=== PATIENT | female | born 1975 | race Caucasian/White ===

== ENCOUNTER 2019-11-05 08:59 | Outpatient (CLI) | payer MEDICARE, MEDICAID, SELFPAY ==
--- NOTE | 2019-11-05 09:09 | CT_ITS ---
WS: [id number] CT CHEST WITHOUT INTRAVENOUS CONTRAST HISTORY: FOREIGN BODY OF CHEST WALL, RIGHT TECHNIQUE: Contiguous 5 mm axial imaging performed on the thorax. Coronal and sagittal reformats are submitted. All CT scans at [facility] use at least one of these dose optimization techniq ues: automated exposure control; mA and/or kV adjustment per patient size (includes targeted exams wh ere dose is matched to clinical indication); or iterative reconstruction. CONTRAST: None DLP: 765.09 mGy-cm. COMPARISON: 10/20/2019 Lungs and central airway: Mild pulmonary hyperinflation and interstitial thickening from emphysema. N o suspicious mass or nodule. Benign granuloma RIGHT lower lobe. Pleura: Normal. No pleural effusion. Heart and pericardium: Normal size heart. No pericardial effusion. Mediastinum and [place]: Benign RIGHT paratracheal and RIGHT hilar lymph nodes are calcified. No adenopa thy identified on this unenhanced study. Vessels: Normal size aortic and pulmonary artery. No coronary artery calcifications. Chest wall and lower neck: Foreign body density measures 6 mm in the soft tissues just to the RIGHT o f midline over the mid sternum. This corresponds to the palpable abnormality and the abnormality desc ribed on a recent ultrasound. May be a foreign body which is calcified or even the residual of a prio r catheter as it does appear to be a central lumen. There is no significant amount of adjacent inflam mation or associated soft tissue mass. Upper abdomen: Negative. Osseous structures: No osteoblastic or osteolytic bone disease. CT/CT chest wo con [id number] IMPRESSION: 1. Foreign body versus calcification in the soft tissues of the anterior chest wall just to the RIGHT of midline. Corresponds to the findings on the recent u ltrasound from 10/20/2019. May be a foreign body reaction or granuloma. Residua l fracture of the venous catheter cannot be excluded. There is no significant a mount of corresponding acute inflammatory reaction or soft tissue mass. May be a granulomatous reaction from the foreign body that was previously present. 2. Mild emphysema.
== END 2019-11-05 09:00 | disposition home or self-care (01) ==
PROVIDERS: Family Provider Nurse Practitioner; PCP Nurse Practitioner; Visit Provider Nurse Practitioner Family
DX: S20.351A Superficial foreign body of right front wall of thorax, initial encounter (principal); X58.XXXA Exposure to other specified factors, initial encounter; J43.9 Emphysema, unspecified
CPT/HCPCS: 71250

== ENCOUNTER → 2019-12-08 10:10 | Outpatient (BNVA) | payer MEDICARE, MEDICAID, SELFPAY | PROVIDERS: Family Provider Nurse Practitioner; PCP Nurse Practitioner; Visit Provider Surgery | DX: R22.9 Localized swelling, mass and lump, unspecified (principal) | CPT/HCPCS: 88305 ==

== ENCOUNTER → 2020-03-17 15:11 | Outpatient (BNVA) | payer MEDICARE, MEDICAID, SELFPAY | PROVIDERS: Family Provider Nurse Practitioner; PCP Nurse Practitioner; Visit Provider Nurse Practitioner | DX: M79.671 Pain in right foot (principal); I10 Essential (primary) hypertension; J30.1 Allergic rhinitis due to pollen; I73.00 Raynaud's syndrome without gangrene; K21.9 Gastro-esophageal reflux disease without esophagitis; F32.9 Major depressive disorder, single episode, unspecified; G43.509 Persistent migraine aura without cerebral infarction, not intractable, without status migrainosus | CPT/HCPCS: 73630; 80053; 80061 ==

== ENCOUNTER → 2020-08-01 15:52 | Outpatient (BNVA) | payer MEDICARE, MEDICAID, SELFPAY | PROVIDERS: Family Provider Nurse Practitioner; PCP Nurse Practitioner; Visit Provider Nurse Practitioner | DX: M25.572 Pain in left ankle and joints of left foot (principal) | CPT/HCPCS: 73610; 73630 ==

== ENCOUNTER → 2020-09-20 14:53 | Outpatient (BNVA) | payer MEDICARE, MEDICAID, SELFPAY | PROVIDERS: Family Provider Nurse Practitioner; PCP Nurse Practitioner; Referring Provider Nurse Practitioner; Visit Provider Podiatrist Foot & Ankle Surgery | DX: S89.92XA Unspecified injury of left lower leg, initial encounter (principal); X58.XXXA Exposure to other specified factors, initial encounter | CPT/HCPCS: 73590 ==

== ENCOUNTER → 2020-10-03 14:26 | Outpatient (BNVA) | payer MEDICARE, MEDICAID, SELFPAY | PROVIDERS: Family Provider Nurse Practitioner; PCP Nurse Practitioner; Visit Provider Nurse Practitioner Family | DX: S89.91XA Unspecified injury of right lower leg, initial encounter (principal); M25.561 Pain in right knee; M25.361 Other instability, right knee; X58.XXXA Exposure to other specified factors, initial encounter | CPT/HCPCS: 73562 ==

== ENCOUNTER 2020-10-13 08:14 | Outpatient (CLI) | payer MEDICARE, MEDICAID, SELFPAY ==
--- NOTE | 2020-10-13 08:45 | MR_ITS ---
WS: [id number] MRI RIGHT KNEE HISTORY: S89.91XA - Unspecified injury of right lower leg, initial encounter COMPARISON: Knee radiographs 10/03/2020. Prior MRI 04/03/2012. Anterior cruciate ligament: Increased signal in the mid to distal ACL extending between the anterior and posterior band. Partial tear is likely. Posterior cruciate ligament: Intact. Medial collateral ligament: Intact. Posterior lateral corner structures: Intact. Medial menisci: Intact. Normal signal, size and shape. Lateral meniscus: Intact. Normal signal, size and shape. Extensor mechanism: Distal quadriceps tendon and patellar tendons are intact. Fluid and soft tissue: Very small joint effusion. There is a small amount of edema in the infrapatell ar fat pad adjacent to the distal patellar tendon. No Romano's cyst. Previously described ganglion is no longer evident. Osseous and articular structures: Patellofemoral compartment: Normal. Medial compartment: Normal. Lateral compartment: Joint space is well preserved. No cartilage injury. There is marrow edema in the anterior tibial plateau with extension into the metaphysis. Low signal on the T1 sequences and incre ased on the T2. Tiny microfractures are evident. No depression of the tibial plateau. MR/MR knee RT wo con* [id number] IMPRESSION: 1. Moderate amount of marrow edema involving the lateral tibial plateau with e xtension into the tibial metaphysis and microfractures. 2. Partial tear distal ACL. 3. No meniscal tear.
== END 2020-10-13 08:15 | disposition home or self-care (01) ==
PROVIDERS: PCP Nurse Practitioner; Visit Provider Nurse Practitioner Family
DX: S83.511A Sprain of anterior cruciate ligament of right knee, initial encounter; X58.XXXA Exposure to other specified factors, initial encounter; R60.0 Localized edema
CPT/HCPCS: 73721

== ENCOUNTER 2020-10-26 06:00 | Outpatient (RCR) | payer MEDICARE, MEDICAID, SELFPAY | END 2020-11-03 23:59 | disposition home or self-care (01) | LOC: TPT 06:00 | PROVIDERS: PCP Nurse Practitioner; Referring Provider Orthopaedic Surgery; Visit Provider Orthopaedic Surgery | DX: S80.01XD Contusion of right knee, subsequent encounter (principal); X58.XXXD Exposure to other specified factors, subsequent encounter | CPT/HCPCS: 97110; 97161 ==

== ENCOUNTER 2020-11-04 06:00 | Outpatient (RCR) | payer MEDICARE, MEDICAID, SELFPAY | END 2020-12-04 23:59 | disposition home or self-care (01) | LOC: TPT 06:00 | PROVIDERS: PCP Nurse Practitioner; Referring Provider Orthopaedic Surgery; Visit Provider Orthopaedic Surgery | DX: S80.01XD Contusion of right knee, subsequent encounter (principal); X58.XXXD Exposure to other specified factors, subsequent encounter | CPT/HCPCS: 97110 ==

== ENCOUNTER 2020-11-15 16:13 | Outpatient (CLI) | payer MEDICARE, MEDICAID, SELFPAY ==
--- NOTE | 2020-11-15 16:20 | XR_ITS ---
WS: [id number] RIGHT RIBS, MULTIPLE VIEWS WITH PA CHEST HISTORY: R07.81 - Pleurodynia COMPARISON: None available. Lungs and mediastinum: Minimal linear scarring at the lingula. No pneumothorax. No pulmonary contusio n. Ribs: No rib fractures or bone destruction identified. XR/XR ribs RT mn 3V w CXR1V [id number] IMPRESSION: No RIGHT rib fractures identified.
== END 2020-11-15 16:14 | disposition home or self-care (01) ==
LOC: RADWPI 16:17
PROVIDERS: PCP Nurse Practitioner; Visit Provider Nurse Practitioner Family
DX: R07.81 Pleurodynia (principal)
CPT/HCPCS: 71101

== ENCOUNTER 2020-12-05 06:00 | Outpatient (RCR) | payer MEDICARE, MEDICAID, SELFPAY | END 2020-12-07 23:00 | disposition home or self-care (01) | LOC: TPT 06:00 | PROVIDERS: PCP Nurse Practitioner; Referring Provider Orthopaedic Surgery; Visit Provider Orthopaedic Surgery | DX: S80.01XD Contusion of right knee, subsequent encounter (principal); X58.XXXD Exposure to other specified factors, subsequent encounter; M25.561 Pain in right knee | CPT/HCPCS: 97110 ==

== ENCOUNTER → 2020-12-07 10:33 | Outpatient (BNVA) | payer MEDICARE, MEDICAID, SELFPAY | PROVIDERS: PCP Nurse Practitioner; Visit Provider Nurse Practitioner Family | DX: I10 Essential (primary) hypertension (principal); E55.9 Vitamin D deficiency, unspecified | CPT/HCPCS: 80053; 80061; 82306; 84443; 85025 ==

== ENCOUNTER → 2021-03-28 11:56 | Outpatient (BNVA) | payer MEDICARE, MEDICAID, SELFPAY | PROVIDERS: PCP Nurse Practitioner; Visit Provider Nurse Practitioner | DX: I10 Essential (primary) hypertension (principal); J30.1 Allergic rhinitis due to pollen; I73.00 Raynaud's syndrome without gangrene; K21.9 Gastro-esophageal reflux disease without esophagitis; G43.509 Persistent migraine aura without cerebral infarction, not intractable, without status migrainosus; F32.9 Major depressive disorder, single episode, unspecified; E78.2 Mixed hyperlipidemia | CPT/HCPCS: 80053; 80061; 84443; 85025 ==

== ENCOUNTER 2021-03-29 14:55 | Outpatient (CLI) | payer MEDICARE, MEDICAID, SELFPAY | END 2021-03-29 14:56 | disposition home or self-care (01) | LOC: SPT 14:57 | PROVIDERS: PCP Nurse Practitioner; Visit Provider Podiatrist Foot & Ankle Surgery | DX: Z46.89 Encounter for fitting and adjustment of other specified devices (principal); M76.72 Peroneal tendinitis, left leg | CPT/HCPCS: L1902 ==

== ENCOUNTER 2021-06-01 13:04 | Outpatient (CLI) | payer MEDICARE, MEDICAID, SELFPAY ==
--- NOTE | 2021-06-01 13:30 | MM_ITS ---
WS: [id number] BILATERAL DIGITAL SCREENING MAMMOGRAPHY WITH CAD CLINICAL INFORMATION: Z12.39 - Encounter for other screening for malignant neop... HISTORY: Screening mammogram. No current complaints. COMPARISON: TECHNIQUE: Bilateral CC and MLO views. FINDINGS: Scattered fibroglandular densities bilaterally. A few tiny punctate calcification. No suspicious foca l mass, asymmetry, calcifications, or architectural distortion. No evidence of malignancy. MM/[place] [id number] IMPRESSION: BI-RADS: 2-Benign FOLLOW UP: 1 Year Follow-up Recommend return to annual screening mammography.
== END 2021-06-01 13:05 | disposition home or self-care (01) ==
PROVIDERS: PCP Nurse Practitioner; Visit Provider Nurse Practitioner
DX: Z12.31 Encounter for screening mammogram for malignant neoplasm of breast (principal)
CPT/HCPCS: 77067

== ENCOUNTER → 2021-12-05 11:59 | Outpatient (BNVA) | payer MEDICARE, MEDICAID, SELFPAY | PROVIDERS: PCP Nurse Practitioner; Visit Provider Nurse Practitioner Family | DX: R30.0 Dysuria (principal) | CPT/HCPCS: 81000 ==

== ENCOUNTER → 2022-02-22 11:01 | Outpatient (BNVA) | payer MEDICARE, MEDICAID, SELFPAY | PROVIDERS: PCP Nurse Practitioner; Visit Provider Nurse Practitioner | DX: E78.2 Mixed hyperlipidemia (principal); I10 Essential (primary) hypertension; E55.9 Vitamin D deficiency, unspecified | CPT/HCPCS: 80053; 80061; 82306; 82607; 84443; 85025 ==

== ENCOUNTER → 2022-06-04 14:19 | Outpatient (BNVA) | payer MEDICARE, MEDICAID, SELFPAY | PROVIDERS: PCP Nurse Practitioner; Visit Provider Podiatrist Foot & Ankle Surgery | DX: M79.671 Pain in right foot (principal); M76.72 Peroneal tendinitis, left leg; M76.71 Peroneal tendinitis, right leg; S90.31XA Contusion of right foot, initial encounter; M25.571 Pain in right ankle and joints of right foot; W20.8XXA Other cause of strike by thrown, projected or falling object, initial encounter | CPT/HCPCS: 73630 ==

== ENCOUNTER → 2022-07-17 14:30 | Outpatient (BNVA) | payer MEDICARE, MEDICAID, SELFPAY | PROVIDERS: PCP Nurse Practitioner; Visit Provider Podiatrist Foot & Ankle Surgery | DX: M76.72 Peroneal tendinitis, left leg (principal); M76.71 Peroneal tendinitis, right leg; S90.31XA Contusion of right foot, initial encounter; X58.XXXA Exposure to other specified factors, initial encounter | CPT/HCPCS: 99213; 99214 ==

== ENCOUNTER 2022-07-23 15:16 | Outpatient (CLI) | payer MEDICARE, MEDICAID, SELFPAY ==
--- NOTE | 2022-07-23 15:26 | MM_ITS ---
WS: [id number] BILATERAL 3D TOMOSYNTHESIS DIGITAL SCREENING MAMMOGRAPHY WITH CAD CLINICAL INFORMATION: Z12.39 - Encounter for other screening for malignant neop... HISTORY: Screening mammogram. LEFT breast soreness COMPARISON: June 01, 2021 TECHNIQUE: Bilateral CC and MLO views. FINDINGS: Scattered fibroglandular densities bilaterally. No suspicious focal mass, asymmetry, calcifications, or architectural distortion. No evidence of malignancy. A few incidental punctate calcifications. MM/[place] [id number] IMPRESSION: BI-RADS: 2-Benign FOLLOW UP: 1 Year Follow-up Recommend return to annual screening mammography.
== END 2022-07-23 15:17 | disposition home or self-care (01) ==
LOC: RAD 15:16
PROVIDERS: PCP Nurse Practitioner; Visit Provider Nurse Practitioner
DX: Z12.31 Encounter for screening mammogram for malignant neoplasm of breast (principal); Z85.6 Personal history of leukemia
CPT/HCPCS: 77063; 77067

== ENCOUNTER → 2022-08-09 11:38 | Outpatient (BNVA) | payer MEDICARE, MEDICAID, SELFPAY | PROVIDERS: PCP Nurse Practitioner; Visit Provider Nurse Practitioner Family | DX: J02.9 Acute pharyngitis, unspecified (principal); J30.89 Other allergic rhinitis | CPT/HCPCS: 87071; 87880 ==

== ENCOUNTER → 2022-10-15 11:30 | Outpatient (BNVA) | payer MEDICARE, MEDICAID, SELFPAY | PROVIDERS: PCP Nurse Practitioner; Visit Provider Nurse Practitioner | DX: E78.2 Mixed hyperlipidemia (principal); E55.9 Vitamin D deficiency, unspecified; M79.10 Myalgia, unspecified site; H65.193 Other acute nonsuppurative otitis media, bilateral; K64.9 Unspecified hemorrhoids; I10 Essential (primary) hypertension; J30.1 Allergic rhinitis due to pollen; I73.00 Raynaud's syndrome without gangrene; K21.9 Gastro-esophageal reflux disease without esophagitis; G43.509 Persistent migraine aura without cerebral infarction, not intractable, without status migrainosus; F32.9 Major depressive disorder, single episode, unspecified; Z23 Encounter for immunization; J06.9 Acute upper respiratory infection, unspecified | CPT/HCPCS: 80053; 80061; 82306; 84443; 85025 ==

== ENCOUNTER → 2022-11-26 14:14 | Outpatient (BNVA) | payer MEDICARE, MEDICAID, SELFPAY | PROVIDERS: PCP Nurse Practitioner; Visit Provider Podiatrist Foot & Ankle Surgery | DX: M76.72 Peroneal tendinitis, left leg (principal) | CPT/HCPCS: 73610 ==

== ENCOUNTER 2022-11-26 15:56 | Outpatient (CLI) | payer MEDICARE, MEDICAID, SELFPAY | END 2022-11-26 15:57 | disposition home or self-care (01) | LOC: SPT 15:57 | PROVIDERS: PCP Nurse Practitioner; Visit Provider Podiatrist Foot & Ankle Surgery | DX: Z46.89 Encounter for fitting and adjustment of other specified devices (principal); M76.72 Peroneal tendinitis, left leg | CPT/HCPCS: 97760; 99213; L1902 ==

== ENCOUNTER → 2023-01-07 14:23 | Outpatient (BNVA) | payer MEDICARE, MEDICAID, SELFPAY | PROVIDERS: PCP Nurse Practitioner Family; Visit Provider Podiatrist Foot & Ankle Surgery | DX: M76.72 Peroneal tendinitis, left leg (principal); M79.671 Pain in right foot | CPT/HCPCS: 99213 ==

== ENCOUNTER → 2023-01-31 16:12 | Outpatient (BNVA) | payer MEDICARE, MEDICAID, SELFPAY | PROVIDERS: PCP Nurse Practitioner; Visit Provider Nurse Practitioner | DX: E78.2 Mixed hyperlipidemia (principal); E55.9 Vitamin D deficiency, unspecified; M79.10 Myalgia, unspecified site; I10 Essential (primary) hypertension; J30.1 Allergic rhinitis due to pollen; K21.9 Gastro-esophageal reflux disease without esophagitis; F32.9 Major depressive disorder, single episode, unspecified; G43.509 Persistent migraine aura without cerebral infarction, not intractable, without status migrainosus; L30.9 Dermatitis, unspecified; H60.90 Unspecified otitis externa, unspecified ear; K59.01 Slow transit constipation | CPT/HCPCS: 80053; 80061 ==

== ENCOUNTER → 2023-04-29 10:21 | Outpatient (BNVA) | payer MEDICARE, MEDICAID, SELFPAY | PROVIDERS: PCP Nurse Practitioner; Visit Provider Podiatrist Foot & Ankle Surgery | DX: M25.572 Pain in left ankle and joints of left foot (principal); M79.671 Pain in right foot | CPT/HCPCS: 99213 ==

== ENCOUNTER → 2023-05-23 10:06 | Outpatient (BNVA) | payer MEDICARE, MEDICAID, SELFPAY | PROVIDERS: PCP Nurse Practitioner; Visit Provider Podiatrist Foot & Ankle Surgery | DX: L60.3 Nail dystrophy (principal); L60.0 Ingrowing nail | CPT/HCPCS: 11730 ==

== ENCOUNTER 2023-06-06 11:37 | Outpatient (CLI) | payer MEDICARE, MEDICAID, SELFPAY | END 2023-06-06 11:38 | disposition home or self-care (01) | PROVIDERS: PCP Nurse Practitioner; Visit Provider Nurse Practitioner Family | DX: M25.561 Pain in right knee (principal); L60.0 Ingrowing nail | CPT/HCPCS: 73562; 99213 ==

== ENCOUNTER → 2023-07-25 15:45 | Outpatient (BNVA) | payer MEDICARE, MEDICAID, SELFPAY | PROVIDERS: PCP Nurse Practitioner; Visit Provider Nurse Practitioner | DX: I10 Essential (primary) hypertension (principal); E78.2 Mixed hyperlipidemia; E55.9 Vitamin D deficiency, unspecified; M79.10 Myalgia, unspecified site; H65.193 Other acute nonsuppurative otitis media, bilateral; K64.9 Unspecified hemorrhoids; K59.01 Slow transit constipation; J30.1 Allergic rhinitis due to pollen; K21.9 Gastro-esophageal reflux disease without esophagitis; G43.509 Persistent migraine aura without cerebral infarction, not intractable, without status migrainosus; F32.9 Major depressive disorder, single episode, unspecified | CPT/HCPCS: 80053; 80061; 82306; 84443 ==

== ENCOUNTER → 2023-08-19 13:16 | Outpatient (BNVA) | payer MEDICARE, MEDICAID, SELFPAY | PROVIDERS: PCP Nurse Practitioner; Visit Provider Nurse Practitioner | DX: E87.1 Hypo-osmolality and hyponatremia (principal); Z23 Encounter for immunization | CPT/HCPCS: 80048 ==

== ENCOUNTER 2023-10-31 12:49 | Outpatient (CLI) | payer MEDICARE, MEDICAID, SELFPAY ==
--- NOTE | 2023-10-31 13:00 | MM_ITS ---
WS: [id number] BILATERAL 3D TOMOSYNTHESIS DIGITAL SCREENING MAMMOGRAPHY WITH CAD CLINICAL INFORMATION: Z12.31 - Encounter for screening mammogram for malignant ... HISTORY: Screening mammogram. No current complaints. COMPARISON: 2021 TECHNIQUE: Bilateral CC and MLO views. FINDINGS: Scattered fibroglandular densities bilaterally. No suspicious focal mass, asymmetry, calcifications, or architectural distortion. No evidence of malignancy. A few tiny incidental punctate calcifications . IMPRESSION: MM/[place] [id number] BI-RADS: 2-Benign FOLLOW UP: 1 Year Follow-up Recommend return to annual screening mammography.
== END 2023-10-31 12:50 | disposition home or self-care (01) ==
LOC: MOBLMAM 12:57
PROVIDERS: PCP Nurse Practitioner; Visit Provider Nurse Practitioner
DX: Z12.31 Encounter for screening mammogram for malignant neoplasm of breast (principal)
CPT/HCPCS: 77063; 77067

== ENCOUNTER → 2024-01-15 14:39 | Outpatient (BNVA) | payer MEDICARE, MEDICAID, SELFPAY | PROVIDERS: PCP Nurse Practitioner; Visit Provider Podiatrist Foot & Ankle Surgery | DX: M25.572 Pain in left ankle and joints of left foot (principal) | CPT/HCPCS: 20600 ==

== ENCOUNTER → 2024-02-10 14:44 | Outpatient (BNVA) | payer MEDICARE, MEDICAID, SELFPAY | PROVIDERS: PCP Nurse Practitioner; Visit Provider Nurse Practitioner | DX: E78.2 Mixed hyperlipidemia (principal); I10 Essential (primary) hypertension; F41.8 Other specified anxiety disorders; E55.9 Vitamin D deficiency, unspecified | CPT/HCPCS: 80053; 80061; 82306; 82607; 84443; 85025 ==

== ENCOUNTER → 2024-06-25 14:22 | Outpatient (BNVA) | payer MEDICARE, MEDICAID, SELFPAY | PROVIDERS: PCP Nurse Practitioner Family; Visit Provider Family Medicine | DX: Z20.822 Contact with and (suspected) exposure to COVID-19 (principal) | CPT/HCPCS: 87426 ==

== ENCOUNTER → 2024-08-03 13:27 | Outpatient (BNVA) | payer MEDICARE, MEDICAID, SELFPAY | PROVIDERS: PCP Nurse Practitioner Family; Visit Provider Nurse Practitioner | DX: I10 Essential (primary) hypertension (principal); J44.9 Chronic obstructive pulmonary disease, unspecified; J98.11 Atelectasis | CPT/HCPCS: 71046; 80048 ==

== ENCOUNTER 2024-09-02 14:13 | Outpatient (CLI) | payer MEDICARE, MEDICAID, SELFPAY ==
--- NOTE | 2024-09-02 14:17 | XRR_ITS ---
PROCEDURE INFORMATION: Exam: XR Right Hand Exam date and time: 09/02/2024 2:21 PM Age: 49 years old Clinical indication: Injury or trauma; Other: Shut hand in car door; Blunt trauma (contusions or hematomas); Right; Injury details: Shut R hand in car door 6 days ago, RT 2nd and 3rd digit pain; Additional info: M79.641 - pain in right hand TECHNIQUE: Imaging protocol: Radiologic exam of the right hand. Views: 3 or more views. COMPARISON: CR XR hand RT min 3V* [id number] 07/28/2019 9:21 AM FINDINGS: Bones/joints: Normal. Soft tissues: Normal. XR/XR hand RT min 3V* [id number] IMPRESSION: No acute findings.
== END 2024-09-02 14:14 | disposition home or self-care (01) ==
LOC: RAD 14:15
PROVIDERS: PCP Nurse Practitioner; Visit Provider Nurse Practitioner Family
DX: M79.641 Pain in right hand (principal)
CPT/HCPCS: 73130

== ENCOUNTER → 2024-11-05 10:15 | Outpatient (BNVA) | payer MEDICARE, MEDICAID, SELFPAY | PROVIDERS: PCP Nurse Practitioner; Visit Provider Podiatrist Foot & Ankle Surgery | DX: L60.3 Nail dystrophy (principal) | CPT/HCPCS: 99213 ==

== ENCOUNTER → 2024-11-19 13:47 | Outpatient (BNVA) | payer MEDICARE, MEDICAID, SELFPAY | PROVIDERS: PCP Nurse Practitioner; Visit Provider Nurse Practitioner Family | DX: J02.9 Acute pharyngitis, unspecified (principal) | CPT/HCPCS: 87880 ==

== ENCOUNTER → 2025-01-27 13:49 | Outpatient (BNVA) | payer MEDICARE, MEDICAID, SELFPAY | PROVIDERS: PCP Nurse Practitioner Family; Visit Provider Nurse Practitioner | DX: I10 Essential (primary) hypertension (principal); E78.2 Mixed hyperlipidemia | CPT/HCPCS: 80053; 80061 ==

== ENCOUNTER 2025-02-17 10:38 | Outpatient (CLI) | payer MEDICARE, MEDICAID, SELFPAY ==
--- NOTE | 2025-02-17 10:40 | MM_ITS ---
WS: [id number] SCREENING DIGITAL TOMOSYNTHESIS MAMMOGRAM WITH CAD HISTORY: Z12.31 - Encounter for screening mammogram for malignant ... COMPARISON: 10/31/2023, 07/23/2022 Bilateral CC and MLO with tomosynthesis views submitted. Synthetic mammography reviewed. Computer aided detection analyzed. Breast composition: The breasts are almost entirely fatty. No suspicious masses, microcalcifications or architectural distortion. MM/MM scr BI tomosynthesis [id number] IMPRESSION: BI-RADS: 2 - Benign. FOLLOW UP: 1 Year Follow-up
== END 2025-02-17 10:39 | disposition home or self-care (01) ==
PROVIDERS: PCP Nurse Practitioner; Visit Provider Nurse Practitioner
DX: Z12.31 Encounter for screening mammogram for malignant neoplasm of breast (principal); R92.313 Mammographic fatty tissue density, bilateral breasts
CPT/HCPCS: 77063; 77067

== ENCOUNTER 2025-04-19 11:41 | Outpatient (CLI) | payer MEDICARE, MEDICAID, SELFPAY ==
--- NOTE | 2025-04-19 11:51 | XR_ITS ---
WS: [id number] Left knee, 3 views, 04/19/2025 Clinical Data: M25.562 - Pain in left knee Comparison: None. Findings: No fractures or dislocations are seen. The joint spaces are normal. The patella is intact. The soft tissues are unremarkable. XR/XR knee LT 3V* [id number] Impression: Negative left knee.
== END 2025-04-19 11:42 | disposition home or self-care (01) ==
PROVIDERS: PCP Nurse Practitioner; Visit Provider Nurse Practitioner Family
DX: M25.562 Pain in left knee (principal)
CPT/HCPCS: 73562

== ENCOUNTER → 2025-04-28 14:11 | Outpatient (BNVA) | payer MEDICARE, MEDICAID, SELFPAY | PROVIDERS: PCP Nurse Practitioner; Visit Provider Nurse Practitioner | DX: I10 Essential (primary) hypertension (principal); Z12.4 Encounter for screening for malignant neoplasm of cervix; E55.9 Vitamin D deficiency, unspecified | CPT/HCPCS: 80053; 82306; 82607; 84443; 85025; 88175 ==

== ENCOUNTER → 2025-05-11 14:24 | Outpatient (BNVA) | payer MEDICARE, MEDICAID, SELFPAY | PROVIDERS: PCP Nurse Practitioner; Visit Provider Podiatrist Foot & Ankle Surgery | DX: L60.0 Ingrowing nail (principal); L60.3 Nail dystrophy; M25.572 Pain in left ankle and joints of left foot; L03.115 Cellulitis of right lower limb | CPT/HCPCS: 11730; 99214; J9999 ==

== ENCOUNTER → 2025-05-25 13:25 | Outpatient (BNVA) | payer MEDICARE, MEDICAID, SELFPAY | PROVIDERS: PCP Nurse Practitioner; Visit Provider Podiatrist Foot & Ankle Surgery | DX: L60.8 Other nail disorders (principal); L60.3 Nail dystrophy; M25.572 Pain in left ankle and joints of left foot; L60.0 Ingrowing nail; L03.115 Cellulitis of right lower limb | CPT/HCPCS: 99213 ==

== ENCOUNTER → 2025-06-07 12:41 | Outpatient (BNVA) | payer MEDICARE, MEDICAID, SELFPAY | PROVIDERS: PCP Nurse Practitioner; Visit Provider Nurse Practitioner Family | DX: E87.1 Hypo-osmolality and hyponatremia (principal); Z85.6 Personal history of leukemia | CPT/HCPCS: 80048; 85025 ==

== ENCOUNTER → 2025-07-01 10:43 | Outpatient (BNVA) | payer MEDICARE, MEDICAID, SELFPAY | PROVIDERS: PCP Nurse Practitioner; Visit Provider Podiatrist Foot & Ankle Surgery | DX: M25.572 Pain in left ankle and joints of left foot (principal); L60.3 Nail dystrophy; S93.492A Sprain of other ligament of left ankle, initial encounter; X58.XXXA Exposure to other specified factors, initial encounter | CPT/HCPCS: 73610; 99213 ==

== ENCOUNTER 2025-07-02 13:04 | Outpatient (CLI) | payer MEDICARE, MEDICAID, SELFPAY ==
--- NOTE | 2025-07-02 12:45 | US_ITS ---
WS: [id number] US pelv w/transvag [id number] HISTORY: N93.9 - Abnormal uterine and vaginal bleeding, unspecified COMPARISON: None available. Uterus: 7.3 cm x 3.3 cm x 3.3 cm. Small caliber anteverted uterus. Limited visualization due to body habitus. Endometrium: 0.3 cm. Normal. Neither ovary is identified. No adnexal mass. No free fluid in the cul-de-sac. US/US pelv w/transvag [id number] IMPRESSION: 1. Technically difficult and limited evaluation of the pelvic structures. 2. Neither ovary is identified. 3. Small caliber uterus. 4. Normal endometrium by ultrasound.
== END 2025-07-02 13:05 | disposition home or self-care (01) ==
LOC: RAD 13:06
PROVIDERS: PCP Nurse Practitioner; Visit Provider Nurse Practitioner
DX: N93.9 Abnormal uterine and vaginal bleeding, unspecified (principal)
CPT/HCPCS: 76830; 76856

== ENCOUNTER → 2025-07-20 12:36 | Outpatient (BNVA) | payer MEDICARE, MEDICAID, SELFPAY | PROVIDERS: PCP Nurse Practitioner; Visit Provider Nurse Practitioner Family | DX: M25.572 Pain in left ankle and joints of left foot (principal); S99.912A Unspecified injury of left ankle, initial encounter; X58.XXXA Exposure to other specified factors, initial encounter | CPT/HCPCS: 73610 ==

== ENCOUNTER 2025-08-18 15:36 | Outpatient (CLI) | payer MEDICARE, MEDICAID, SELFPAY | END 2025-08-18 15:37 | disposition home or self-care (01) | LOC: SPT 15:37 | PROVIDERS: PCP Nurse Practitioner; Visit Provider Podiatrist Foot & Ankle Surgery | DX: Z46.89 Encounter for fitting and adjustment of other specified devices (principal); S93.402D Sprain of unspecified ligament of left ankle, subsequent encounter | CPT/HCPCS: L1902 ==

== ENCOUNTER 2025-09-26 01:05 | Emergency (ER) | payer MEDICARE, MEDICAID, SELFPAY ==
--- OUTSIDE RECORDS SUMMARY | 2025-09-26 01:13 | XMS_ITS | Data Portability ---
Author Organization [facility] Address [address] [address] Care Team Providers Care Porcelain Finisher Name Role Phone DIONTE ADKINS Primary Care Provider Assessment No assessment recorded. Plan of Treatment Reminders Order Date Submit Date Provider Last Modified By Organization Details Last Modified Time Details Appointments None recorded. Lab None recorded. Referral None recorded. Procedures None recorded. Surgeries None recorded. Imaging XR, ribs, unilateral, w/ PA chest 2022 023 [email or web address] 2 [facility] ([facility]), [address] [place], [address], 09:54:49 Medication Orders amoxicillin 875 mg tablet 2022 023 [id number], [address] [place], [place], [id number], 15:45:16 Patient TargetsNo targets recorded. Patient InstructionsNo instructions recorded. Reason for Referral None Reported. Results Created Date Observation Date Name Description Value Unit Range Abnormal Flag Note LastModifiedBy Organization Detail LastModifiedTime 10/16/2010/15/2023 XR, ribs, unila teral , w/ PA chest No observ ation record ed. [email or web address] [facility] [address] [place], [address], 10/18/2023 15:00:17 Result Notes None recorded. 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 Medical Equipment None Reported. Allergies No known drug allergies Medications Name Sig Start Date Stop Date Status Note LastModified by Organization Details LastModified Time losartan 50 mg tablet take one tablet BY MOUTH EVERY DAY active Not Available Not Available No t Available nifedipin e ER 30 mg tablet,ex tended release 24 hr TAKE ONE TABLET BY MOUTH DAILY active Not Available Not Available No t Available cyclobenz aprine 10 mg tablet TAKE ONE TABLET BY MOUTH at bedtime active Not Available Not Available No t Available atorvasta tin 40 mg tablet take one tablet BY MOUTH EVERY DAY active Not Available Not Available No t Available venlafaxi ne ER 75 mg capsule,e xtended release 24 hr TAKE ONE CAPSULE BY MOUTH EVERY MORNING active Not Available Not Available No t Available cetirizin e 10 mg tablet active 2 TABS AM, 1 TAB PM; 0; Recorded 04/29/20 4:35PM by Aleja Sauceda, Office Visit; Not Available Not Available Not Available meloxicam 15 mg tablet TAKE ONE TABLET BY MOUTH DAILY active Not Available Not Available No t Available prednison e 20 mg tablet daily 09/28 completed Recorded 04/29/20 4:59PM by IRIS Shah, Office Visit; Refill Quantity : 0; Not Available Not Available Not Available potassium chloride ER 10 mEq tablet,ex tended release take one tablet BY MOUTH TWICE DAILY active Not Available Not Available No t Available doxepin 10 mg capsule AT bedtime active 0; Recorded 04/29/20 4:35PM by Aleja Sauceda, Office Visit; Not Available Not Available Not Available amoxicill in 875 mg tablet Take 1 tablet every 12 hours by oral route for 10 days. 2022 active Not Available Not Available Not Avai lable cephalexi n 500 mg capsule TAKE ONE CAPSULE BY MOUTH TWICE DAILY FOR SEVEN DAYS 09/28 completed Not Available Not Available Not Available losartan 25 mg tablet TAKE ONE TABLET BY MOUTH DAILY 09/28 completed Not Available Not Available Not Available omeprazol e 20 mg capsule,d elayed release TAKE ONE TABLET BY MOUTH DAILY active Not Available Not Available No t Available monteluka st 10 mg tablet take one tablet BY MOUTH EVERY DAY active Not Available Not Available No t Available mupirocin 2 % topical ointment APPLY TO THE AFFECTED AREA(S) topicall y TWICE DAILY FOR TWO WEEKS active Not Available Not Available No t Available methylpre dnisolone 4 mg tablets in a dose pack USE DIRECTED ON PACKAGE 09/28 completed Not Available Not Available Not Available cefdinir 300 mg capsule TAKE ONE CAPSULE BY MOUTH TWICE DAILY FOR 10 DAYS 09/28 completed Not Available Not Available Not Available fluticaso ne propionat e 50 mcg/actua tion nasal spray,ayan pension USE TWO SPRAYS IN EACH NOSTRIL DAILY active Not Available Not Available No t Available neomycin- polymyxin -hydrocor t 3.5 mg-10,000 unit/mL-1 % ear drops,ayan p instill FOUR drops into THE ear(s) THREE TIMES DAILY FOR 10 DAYS 09/28 completed Not Available Not Available Not Available topiramat e 50 mg tablet BID active 0; Recorded 04/29/20 4:35PM by Aleja Sauceda, Office Visit; Not Available Not Available Not Available venlafaxi ne Daily 09/28 completed 0; Recorded 04/29/20 4:35PM by Aleja Sauceda, Office Visit; Not Available Not Available Not Available Nifedipin e CR Daily active 0; Recorded 04/29/20 4:35PM by Aleja Sauceda, Office Visit; Not Available Not Available Not Available Potassium Chloride ER Daily active 0; Recorded 04/29/20 4:35PM by Aleja Sauceda, Office Visit; Not Available Not Available Not Available Praluent Pen 150 mg/mL subcutane ous pen injector INJECT 150 MG SUBCUTAN EOUSLY every 14 DAYS into abdomen, thigh OR upper TO THE ARM (deltoid muscle). rotate sites. 09/28 completed Not Available Not Available Not Available Procto-Me d HC 2.5 % topical cream perineal applicato r apply RECTALLY DAILY NEEDED FOR HEMORRHO IDS 09/28 completed Not Available Not Available Not Available losartan potassium (bulk) Daily 09/28 completed 0; Recorded 04/29/20 20 4:35PM by Aleja Sauceda, Office Visit; Not Available Not Available Not Available Vitals Date Recorded Body height Body mass index (BMI) Body weight Body temperature Respiratory rate Oxygen saturation Heart rate Systolic And Diastolic Provider Name and Address Organization Details Last Updated DateTime 3 151.13 cm 29.5 kg/m2 04855.4 7 g 98.5 [degF] 20 /min 96 % 88 /min 120/80 mm[Hg] LUIS ALFREDO PAL [facility] 3 15:07:53 Date Recorded Body height Body mass index (BMI) Body weight Oxygen saturation Heart rate Respiratory rate Body temperature Systolic And Diastolic Provider Name and Address Organization Details Last Updated DateTime 3 151.13 cm 29.5 kg/m2 15376.8 3 g 98 % 102 /min 15 /min 97.3 [degF] 128/86 mm[Hg] Sloane Alarcon [facility] 3 16:53:28 Social History None recorded. Functional Status None recorded. Mental Status None recorded. Family History Nothing Reported. Medical History No medical history recorded. Gynecological HistoryNo gynecological history recorded. Obstetrics History GPAL:G 0 P 0 0 0 0 Past Encounters Encounter ID Performer Location Encounter Start Date Encounter Closed Date Diagnosis/Indication Diagnosis SNOMED-CT Code Diagnosis ICD10 Code Diagnosis IMO Codes Diagnosis Note [id number] PRIYA DEVRIES [facility] ([facility]) [address] [place] [address] 09/28/2023 15:00:56 09/28/2023 15:54:12 Sore throat 140264401 J02.9 Acute pharyngitis 261570 003 J02.9 Attempted to run strep test, however, machine was down and unable to complete test. Due to 3+ erythemato us tonsils, will start treatment today. Start amoxicilli n BID x 10 days. Encouraged to continue tylenol and ibuprofen as needed for pain and fever. Push fluids and use cool mist humidifier at night. Change toothbrush out after 2 days of antibiotic s. If worsening condition or no improvemen t in 5-7 days, return for further evaluation . [id number] PRIYA DEVRIES [facility] ([facility]) [address] [place] [address] 10/15/2023 16:21:30 10/15/2023 19:04:43 Rib pain 004206264 R07.81 Will send x-ray for over read. Encouraged continued use of tylenol PRN. Discussed hugging pillow for positional changes as well as taking several deep breaths per hour. Patient is agreeable to this. Will follow up with PCP in 2 weeks. Health Concerns Section Related Observation LastModified by Organization Detai ls LastModified Time None Recorded Concern Status LastModified by Organization Details LastModified Time None Recorded Advance Directives Directive None Recorded Payers Insurance Date Sequence Insurance Name Policy Number Policy Raines Covered Member ID Arines Member ID Guarantor Name 10/15/2023 2 [place] Wendy A Komm [id number] Wendy A Komm 10/04/2023 [place] - [facility] (MEDICARE) Wendy A Komm [id number] Wendy A Komm 10/04/2023 [place] [facility] Wendy A Komm [id number] Wendy A Komm 10/15/2023 1 [place] [facility] Wendy A Komm [id number] Wendy A Komm Notes Date Note Type Note Provider Name and Address Organization Details Recorded Time 3 text/html Sore ThroatReported by PatientHPIFor quality, patient reportsdifficulty swallowing,sharp, andburning. For severity, patient reportsmoderate. For associated symptoms, patient reportscoughbut reportsno fever. For location, patient reportsbilateral. For onset/timing, patient reportsdate of onset 09/25/23andsudden. For context, patient reportsno recent travel,no tick/insect bites,no one else with similar symptoms, andallergies. For alleviating factors, (tried swish and swallow, abran benitez). Patient is a 48 year old female who presents to the walk in clinic today for sore throat and PENDLETON. Patient reports symptoms for 4 days and seems to be getting worse. Patient states she was around a family member 6 days ago who had strep throat and she expresses concerns for strep. PRIYA DEVRIES [address] [place], [address], [facility] 09/28/2023 15:45:29 3 text/html Abdominal PainReported by PatientAbdominal PainFor quality, patient reportssharpandstabbing. For severity, patient reportsworsebut reportssevereandpain level 8/10. For location, patient reportsgeneralized(right side). For duration, patient reportsconstant. For onset/timing, patient reportssudden. For aggravating factors, patient reportsmovement. For alleviating factors, patient reportslaying down. For previous tests, treatment and/or diagnostic procedures, patient reportsotc medications.ROS as noted in the HPI PRIYA DEVRIES [address] [place], [address], [facility] 10/15/2023 17:54:56 OBGyn Episode No OBEpisode recorded.
--- OUTSIDE RECORDS SUMMARY | 2025-09-26 01:13 | XMS_ITS | Encounter Summary ---
Author Organization [employer] [facility] Address [address] [place] [address] Care Team Providers Care Telephone Maintenance Mechanic Name Role Phone Unavailable Primary Care Provider Unavailabl e Encounter Details Date Type Department Care Team (Latest Contact Info) Description 05/22/2002 Outpatient Historical [facility] Syeda Nesbitt MD DIARRHEA NOS (Primary Dx) Social History Tobacco Use Types Packs/Day Years Used Date Smoking Tobacco: Never Assessed Comments Unknown Sex and Gender Information Value Date Recorded Sex Assigned at Not on file 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
--- OUTSIDE RECORDS SUMMARY | 2025-09-26 01:13 | XMS_ITS | Clinical Summary ---
Author Organization [facility] Address 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
--- NOTE | 2025-09-26 01:26 | ECG_ITS ---
[facility] 2025[facility]26 Pat Name: Wendy Luong Department: Room: Gender: Female Rug Measurer: : 1975 Requested By: Jay Bauer Order Number: [id number] Valentine MD: Sarah Christian M.D. Measurements Intervals [place] Rate: 112 P: 52 MI: 151 QRS: 26 QRSD: 76 T: 56 QT: 305 QTc: 418 Interpretive Statements SINUS TACHYCARDIA NONSPECIFIC T-WAVE ABNORMALITY ABNORMAL RHYTHM ECG No previous ECG available for comparison Electronically Signed On 09-26-2025 17:37:39 REGIONAL SALES ASSOCIATE by Sarah Christian M.D. [email or web address]
[2025-09-26 01:28] VITALS: PULSE 110; RESP 16; TEMP 36.9; O2SAT 97
--- NOTE | 2025-09-26 01:58 | XRR_ITS ---
PROCEDURE INFORMATION: Exam: XR Left Shoulder Exam date and time: 09/26/2025 2:07 AM Age: 50 years old Clinical indication: C/O left shoulder pain. No injury. ; Additional info: L scapular pain TECHNIQUE: Imaging protocol: Radiologic exam of the left shoulder. Views: 2 or more views. COMPARISON: CR XR chest 2V* [id number] 08/03/2024 1:26 PM FINDINGS: Bones/joints: No acute fracture or dislocation. Diffuse osseous demineralization. Soft tissues: Normal. XR/XR shoulder LT min 2V* [id number] IMPRESSION: No acute fracture or dislocation.
[2025-09-26 02:19] LABS: Glucose Urine UA Negative (Normal); Nitrate Urine Negative (Negative); Specific Gravity, Urine 1.005 (1.005-1.030)
[2025-09-26 02:23] LABS: Add Urine Microscopic? YES
--- NOTE | 2025-09-26 05:19 | ED_ITS ---
HPI - Back Pain/Injury General: Chief Complaint: Back Pain/Injury Stated Complaint: sharp pain in back and under L arm Time Seen by Provider: 09/26/25 01:20 History of Present Illness: pt is a 50F with a pmhx of leukemia in [facility] who presents with L shoulder pain, has been going on for the past few days, doesnt recall major trauma to the area, could be related to overuse as has been moving some boxes recently. no prior orthopedic injuries to her LUE. no fevers, chills, diaphoresis, feeling illn, NVD, abd pain. has tried heating pads and tylenol to mild relief. Associated symptoms: Deny abdominal pain, chills or fever(s) Related Data Home Medications ?Medication ?Instructions ?Recorded ?Confirmed multivitamin (Daily Multi-Vitamin 1 tab PO QAM 2 0 09/10/25 tablet) Previous Rx's ?Medication ?Instructions ?Recorded [place] #1 ea 09/20/20 magnesium hydroxide 400 mg/5 mL 15 ml PO .at bedtime P RN 11/14/23 oral suspension (Milk of Magnesia) constipation #355 m L triamcinolone acetonide 0.1 % 1 applic topical TID #15 grams 04/06/24 topical ointment hydrocortisone 2.5 % topical cream 1 applic [place] DAILY P RN hemorrhoids 05/18/24 with perineal applicator #30 grams (Proctosol HC) triamcinolone acetonide 55 mcg 1 spray intranasal CATIA Y #16.9 mL 05/18/24 nasal spray aerosol cholecalciferol (vitamin D3) 125 5,000 unit PO DAILY # 30 tabs 08/03/24 mcg (5,000 unit) tablet mupirocin 2 % topical ointment 1 applic topical TID 2 weeks #22 01/01/25 grams fluticasone propionate 50 2 spray intranasal DAILY #16 grams 06/07/25 mcg/actuation nasal spray,suspension (Flonase Allergy Relief) atorvastatin 40 mg tablet (Lipitor) 40 mg PO DAILY #30 tabs 06/13/25 cyanocobalamin (vitamin B-12) 1,000 mcg IM .monthly #1 mL 06/13/25 1,000 mcg/mL injection solution cyclobenzaprine 10 mg tablet 10 mg PO .at bedtime #30 tabs 06/13/25 fluticasone furoate 100 1 inh inhalation Q24H #60 ea 06/13/25 mcg-vilanterol 25 mcg/dose inhalation powder (Breo Ellipta) losartan 50 mg tablet (Cozaar) 50 mg PO DAILY #30 tabs 06/13/25 montelukast 10 mg tablet 10 mg PO DAILY #30 tabs 08/1 0 (Singulair) nifedipine 30 mg tablet,extended 30 mg PO DAILY #30 ta bs 06/13/25 release 24 hr (Procardia XL) omeprazole 20 mg tablet,delayed 20 mg PO DAILY #30 tab s 06/13/25 release potassium chloride 10 mEq 10 meq PO BID #60 tabs 06/13 tablet,extended release rimegepant 75 mg disintegrating 75 mg PO .COMPLEX #16 tabs 06/13/25 tablet (Nurtec ODT) sodium chloride 1,000 mg soluble 1,000 mg PO DAILY #30 tabs 06/13/25 tablet venlafaxine 75 mg capsule,extended 75 mg PO QAM #30 ca ps 06/13/25 release 24 hr nystatin 100,000 unit/mL oral 5 ml PO QID 7 days #140 mL 06/28/25 suspension estradiol 0.01% (0.1 mg/gram) 1 g vaginal .2 times wee k #42.5 08/01/25 vaginal cream (Estrace) grams cetirizine 10 mg tablet (Zyrtec) 10 mg PO DAILY PRN al lergy 08/16/25 symptoms #90 tabs ASO TO LEFT #1 ea 08/18/25 cephalexin 500 mg capsule 500 mg PO BID 10 days #20 ca ps 09/26/25 tizanidine 4 mg capsule 4 mg PO Q12H PRN muscle spas ticity 09/26/25 #20 caps Allergies Allergy/AdvReac Type Severity Reaction Status Date / Time adhesive tape Allergy Unknown RASH Verified 09/10/25 13:02 Iodinated Contrast Media Allergy Unknown RASH if Verified 09/10/25 13:02 she gets to much of it. sulfamethoxazole (From Allergy Unknown Unknown Verified 09/10/25 13:02 Septra) trimethoprim (From ) Allergy Unknown Unknown Verified 09/10/25 13:02 Review of Systems General: Reports: 10 or more systems reviewed and unremarkable except in HPI and below Const: Denies: fever(s) or chills Eyes: Denies: change in vision or eye discharge Card: Denies: chest pain, palpitations or swelling of feet/ankles Resp: Denies: dyspnea or productive cough GI: Denies: abdominal pain or diarrhea Musc: Reports: back pain and extremity pain; Denies: neck pain Skin/Breast: Denies: rash or jaundice Neuro: Denies: headache(s), numbness in extremities or weakness in extremities John/Lymph: Denies: easy bruising or easy bleeding PFSH ED PFSH: Medical History (Updated 09/26/25 @ 02:45 by Jay Bauer DO) Anxiety with depression Constipation, slow transit History of leukemia age 7 worked with [employer] Mixed hyperlipidemia Migraine aura, persistent Gastric reflux Seasonal allergic rhinitis due to pollen Enrolled in chronic care management She decline 12/28 Arthritis Migraines Hypertension Raynaud's phenomenon Surgical History S/P thyroid biopsy History of ankle surgery 2010 Hx of knee surgery 2011 x2 H/O colonoscopy 07/22/18 Family History Other Cancer Diabetes Heart disease Denies family history of Anesthesia complication Bleeding disorder Social History Smoking and tobacco/nicotine status: never used tobacco/nicotine Second hand smoke exposure: Yes Alcohol intake: never Substance/Drug Use: never Caregiver/support person: No Lives independently: Yes Household members: none Housing: House Marital status: Single Number of children: 0 Highest education level completed: High School Graduate service: No Current occupational status: disabled Pets and animals: Yes Do you think of yourself as: Straight/Heterosexual Current gender identity: Female Physical Exam Narrative: EXAM NARRATIVE: Patient overall well-appearing, afebrile and vital signs stable on arrival, no acute distress. head normocephalic, PERRL, moist mucous membranes, no cervical LAD. breathing comfortably on RA, saturating well, clear BL and no adventitious breath sounds, able to speak in full sentences without getting SOB, no signs of respiratory distress. NSR with no murmurs, no leg swelling, 2+ pulses throughout, good cap refill. Abdomen soft, nontender, nondistended, no localizi ng or peritonitic signs, no overlying skin changes, no CVA ttp. L shoulder with diffuse ttp to posterior shoulder around scapular spine area, limited PROM in shoulder extension and abduction, 2= radial pulse, compartments soft, no ttp or restrictions in ROM to L elbow or wrist.. GCS 15, AAOx4, able to answer questions and follow commands appropriately, moving all 4 extremities symmetrically and spontaneoulsy. Normal mood and affect. Course Vital Signs: Vital signs: Vital Signs Temperature 98.4 F 09/26/25 01:28 Pulse Rate 110 H 09/26/25 01:28 Respiratory Rate 16 09/26/25 01:28 Pulse Oximetry 97 09/26/25 01:28 Oxygen Delivery Me thod Room Air 09/26/25 01:28 MDM - Back Pain/Injury Medical Decision Making -ddx: L shoulder strain, fracture, dislocation, frozen shoulder, rotator cuff injury -negative XR for fracture, dislocation. because of upper back pain, UA was obtained in triage, was moderately positive, no urinary sx, other than possibly more frequency, with hx of cancer and shared decision making, agreed to treat as a cystitis, no fevers, abd or back pain, NV to consider pyleo. will treat symptomaticaly for a MSK injury to her L shoulder, advised rest nd ortho fu if worsens and with treatment for her UTI, dc'd in stble condition with friend at bedside. Labs Radiology Impressions Shoulder X-Ray 09/26/25 01:58 IMPRESSION: No acute fracture or dislocation. Laboratory Results Urine Color Yellow (Yellow) 09/26/25 01:23 Urine Appearance Clear (CLEAR) 09/26/25 01:23 Urine pH 6.5 (5-7) 09/26/25 01:23 Ur Specific [place] 1.005 (1.005-1.030) 09/26/25 01:23 Urine Protein Negative (Negative) 09/26/25 01:23 Urine Glucose (UA) Negative (Normal) 09/26/25 01:23 Urine Ketones Negative (Negative) 09/26/25 01:23 Urine Blood Negative (Negative) 09/26/25 01:23 Urine Nitrate Negative (Negative) 09/26/25 01:23 Urine Bilirubin Negative (Negative) 09/26/25 01:23 Urine Urobilinogen 0.2 mg/dL (Negative) 09/26/25 01:23 Ur Leukocyte Esterase Trace (Negative) A 09/26/25 01:23 Urine RBC 3-5 /hpf (0-2) 09/26/25 01:23 Urine WBC 0-5 /hpf (0-5) 09/26/25 01:23 Ur Squamous Epith Cells 0-5 /hpf (0-5) 09/26/25 01:23 Amorphous Sediment Not Reportable 09/26/25 01:23 Urine Bacteria 4+ /hpf (NONE) H 09/26/25 01:23 Hyaline Casts 0-4 /lpf H 09/26/25 01:23 All radiology interpretation(s) finalized by discharge Discharge Plan Discharge Patient Disposition: Home Clinical Impression: UTI (urinary tract infection), Sprain of shoulder, left Condition: Stable Prescriptions: New cephalexin 500 mg capsule 500 mg PO BID 10 Days Qty: 20 0RF tizanidine 4 mg capsule 4 mg PO Q12H PRN (Reason: muscle spasticity) Qty: 20 0RF No Action multivitamin [Daily Multi-Vitamin] Tablet 1 tab PO QAM (DME) Matt See Rx Instructions .Route .MEDSUPPLY Qty: 1 0RF Rx Instructions: As directed cholecalciferol (vitamin D3) 125 mcg (5,000 unit) tablet 5,000 unit PO DAILY Qty: 30 2RF estradiol [Estrace] 0.01 % (0.1 mg/gram) cream 1 g vaginal .2 times week Qty: 42.5 2RF magnesium hydroxide [Milk of Magnesia] 400 mg/5 mL suspension 15 ml PO .at bedtime PRN (Reason: constipation) Qty: 355 0RF triamcinolone acetonide 55 mcg aerosol,spray 1 spray intranasal DAILY Qty: 16.9 2RF Rx Instructions: administer into each nostril hydrocortisone [Proctosol HC] 2.5 % cream with perineal applicator 1 applic IL DAILY PRN (Reason: hemorrhoids) Qty: 30 2RF triamcinolone acetonide 0.1 % ointment 1 applic topical TID Qty: 15 0RF mupirocin 2 % ointment 1 applic topical TID 14 Days Qty: 22 0RF atorvastatin [Lipitor] 40 mg tablet 40 mg PO DAILY Qty: 30 5RF cyanocobalamin (vitamin B-12) 1,000 mcg/mL solution 1,000 mcg IM .monthly Qty: 1 5RF cyclobenzaprine 10 mg tablet 10 mg PO .at bedtime Qty: 30 5RF fluticasone furoate-vilanterol [Breo Ellipta] 100-25 mcg/dose blister with device 1 inh inhalation Q24H Qty: 60 5RF losartan [Cozaar] 50 mg tablet 50 mg PO DAILY Qty: 30 5RF montelukast [Singulair] 10 mg tablet 10 mg PO DAILY Qty: 30 5RF nifedipine [Procardia XL] 30 mg tablet extended release 24hr 30 mg PO DAILY Qty: 30 5RF omeprazole 20 mg tablet,delayed release (DR/EC) 20 mg PO DAILY Qty: 30 5RF potassium chloride 10 mEq tablet extended release 10 meq PO BID Qty: 60 5RF Nurtec ODT 75 mg tablet,disintegrating 75 mg PO .COMPLEX Qty: 16 5RF Rx Instructions: 75 mg orally Saturday and Sat; sodium chloride 1,000 mg tablet,soluble 1,000 mg PO DAILY Qty: 30 5RF venlafaxine 75 mg capsule,extended release 24hr 75 mg PO QAM Qty: 30 5RF fluticasone propionate [Flonase Allergy Relief] 50 mcg/actuation spray,suspension 2 spray intranasal DAILY Qty: 16 0RF Rx Instructions: administer into each nostril nystatin 100,000 unit/mL suspension 5 ml PO QID 7 Days Qty: 140 0RF Rx Instructions: swish and swallow (DME) ASO TO LEFT See Rx Instructions .Route .MEDSUPPLY Qty: 1 0RF Rx Instructions: As directed cetirizine [Zyrtec] 10 mg tablet 10 mg PO DAILY PRN (Reason: allergy symptoms) Qty: 90 0RF Rx Instructions: OTC she buying Discharge Orders: Discharge ED (Routine); Ordered 09/26/25 Ordered By: Jay Bauer Referrals: Fernie Nascimento FNP-C [Primary Care Provider, Family Practice] Patient Instructions: Opioid Safety, Pain Management, Patient Portal & Bree Instructions Activity Restrictions/Additional Instructions: You were seen for your left shoulder and back pain, you were evaluated with an x-ray and urine test which found you to have a urinary tract infection but no shoulder fracture or dislocation today, you most likely have a sprain of your shoulder from recent yardwork. To treat the infection, take the Keflex 500 mg twice a day for at least 5 days, if your symptoms have not completely resolved by then or if you have any fevers, feeling ill, urinary difficulties, take it for the complete 10 days. For shoulder sprain, alternate ibuprofen 400 mg and Tylenol 650 mg every 4 hours as needed for the pain and swelling, for any cramps or spasms, use the muscle relaxant tizanidine, 4 mg twice daily. Continue to do stretches to your arm does not get stiff, apply heating pads 20 minutes at a time alternating with ice packs every few hours as well. Follow-up with your primary care physician later next week for reevaluation of your symptoms. Return to the ED with severe worsening of the pain, fevers that do not improve with Tylenol, inability to eat or drink, any other emergent concerns. Print Language: [place] Coding Level of Care Code ED Grievance Coordinator for Walter Qiu
== END 2025-09-26 02:59 | disposition home or self-care (01) ==
PROVIDERS: Emergency Provider Student in an Organized Health Care Education/Training Program; PCP Nurse Practitioner
DX: N39.0 Urinary tract infection, site not specified (principal); S43.402A Unspecified sprain of left shoulder joint, initial encounter; E78.2 Mixed hyperlipidemia; I10 Essential (primary) hypertension; X58.XXXA Exposure to other specified factors, initial encounter
CPT/HCPCS: 73030; 81001; 93005; 99284